=== PATIENT | male | born 1995 | race Hispanic/Latino ===

== ENCOUNTER → 2017-09-15 | Emergency (ER) | payer SELFPAY ==
[~2017-09-15] VITALS: Ht 177.8 cm; Wt 108.9 kg
== END | disposition left against medical advice (07) ==
LOC: FSED 21:44
DX: S20.211A Contusion of right front wall of thorax, initial encounter (principal); W01.198A Fall on same level from slipping, tripping and stumbling with subsequent striking against other object, initial encounter; Y93.E1 Activity, personal bathing and showering; Y92.002 Bathroom of unspecified non-institutional (private) residence as the place of occurrence of the external cause